=== PATIENT | male | born 1990 | race Caucasian/White ===

== ENCOUNTER 2017-06-21 10:42 | Emergency (ER) | payer MEDICAID ==
[2017-06-21 10:53] VITALS: BP 153/87
--- NOTE | 2017-06-21 11:27 | EDM.PDOC ---
ED HPI GENERAL MEDICAL PROBLEM - General Chief Complaint: ENT Problem Stated Complaint: TOOTHACHE LEFT UPPER AND LOWER Time Seen by Provider: 06/21/17 11:18 Source of Information: Reports: Patient, RN Notes Reviewed History Limitations: Reports: No Limitations - History of Present Illness INITIAL COMMENTS - FREE TEXT/NARRATIVE: 26-year-old female presents to the emergency department today with complaint of dental pain, she has been dealing with this for the last couple of months over the last couple days it has progressively gotten worse she is not had any fevers but she does have swelling on the left side of her face dentition is very poor she initially injured her teeth while eating and and breaking to teeth she does not have appointment with dentistry Left Upper Tooth/Teeth Pain Score (Numeric/FACES): 10 - Related Data Allergies Allergy/AdvReac Type Severity Reaction Status Date / Time cefixime [From Suprax] Allergy Rash Verified 07/23/16 20:56 Home Meds: Home Meds NK [No Known Home Meds] 07/23/16 [History] Past Medical History Other Cardiovascular History: rejilacontreras of [place] Psychiatric History: Reports: Addiction, Bipolar, Depression - Past Surgical History Cardiovascular Surgical History: Reports: Valve Replacement Social & Family History - Tobacco Use Smoking Status *Q: Never Smoker - Caffeine Use Caffeine Use: Reports: Soda - Recreational Drug Use Recreational Drug Use: No ED ROS ENT - Review of Systems Review Of Systems: See Below Constitutional: Denies: Fever, Chills HEENT: Reports: Dental Pain Respiratory: Reports: No Symptoms Cardiovascular: Reports: No Symptoms ED EXAM, ENT - Physical Exam Exam: See Below Text/Narrative:: Mouth mucosa is moist and pink she does have dental caries and fractured tooth # 15 and 16 both are tender to the touch Exam Limited By: No Limitations General Appearance: Alert, WD/WN, No Apparent Distress Respiratory/Chest: No Respiratory Distress Course - Vital Signs Last Recorded V/S: Last Vital Signs Temp 96.1 F 06/21/17 10:53 Pulse 82 06/21/17 10:53 Resp 16 06/21/17 10:53 BP 153/87 H 06/21/17 10:53 Pulse Ox 99 06/21/17 10:53 Departure - Departure Time of Disposition: 11:26 Disposition: Home, Self-Care 01 Condition: Good Clinical Impression: Infected tooth - Discharge Information Referrals: PCP,None [Primary Care Provider] - Additional Instructions: Take full course of antibiotics, use ibuprofen for baseline pain control use hydrocodone for breakthrough pain, please follow-up with dentistry SundayJune 26 at 8:15 in the morning at the [facility] dental clinic - Assessment/Plan Plan: Assessment Acuity = acute Site and laterality = dental pain tooth #16 and 17 with early abscess development Etiology = probable bacterial cause Manifestations = none Location of injury = Home Lab values = none Plan Treat with amoxicillin 500 mg by mouth 3 times a day 10 days prescription written for hydrocodone 5/325 one tab by mouth 3 times a day when necessary total #10 tablets were able to set up a dental appointment with her at the dental clinic June 26 8:15 in the morning This note was dictated using [email or web address] voice recognition software please call with any questions on syntax or ana lilia.
== END 2017-06-21 11:32 | disposition home or self-care (01) ==
LOC: JP.ED 10:42
DX: K04.7 Periapical abscess without sinus (principal); K03.81 Cracked tooth; K02.9 Dental caries, unspecified; Z88.1 Allergy status to other antibiotic agents
CPT/HCPCS: 99283

== ENCOUNTER 2021-05-28 19:13 | Emergency (ER) | payer MEDICAID ==
[2021-05-28 19:57] VITALS: BP 109/68; PULSE 68
--- NOTE | 2021-05-28 20:25 | EDM.PDOC ---
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 Recently had a checkup per cardiology back in April she states no issues she denies any shortness of breath no chest pain no discolored fingers the insides of her thighs are warm however the outside of her thighs where she has the blue-colored skin is cooler denies pain Pain Score (Numeric/FACES): 0 - Related Data Allergies Allergy/AdvReac Type Severity Reaction Status Date / Time cefixime [From Suprax] Allergy Rash Verified 05/28/21 19:43 Home Meds: Home Meds Pnv No.103/Folic/Om3s/Fish Oil [ Gummies] 1 tab PO DAILY 05/28/21 [History] Past Medical History HEENT History: Reports: Impaired Vision Cardiovascular History: Reports: Other (See Below) Other Cardiovascular History: tetralogy of fallot Respiratory History: Reports: Asthma Genitourinary History: Reports: None [employer]ES DATA A[employer]ST History: Reports: Psychiatric History: Reports: Addiction, Bipolar, Depression - Past Surgical History Head Surgeries/Procedures: Reports: None HEENT Surgical History: Reports: None Cardiovascular Surgical History: Reports: Valve Replacement, Other (See Below) Other Cardiovascular Surgeries/Procedures: 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 Female Surgical History: Reports: Section, Tubal Ligation Social & Family History - Tobacco Use Tobacco Use Status *Q: Never Tobacco User - Caffeine Use Caffeine Use: Reports: Soda - Recreational Drug Use Recreational Drug Use: No Review of Systems - Review of Systems Review Of Systems: See Below Constitutional: Reports: No Symptoms Respiratory: Reports: No Symptoms Cardiovascular: Reports: No Symptoms GI/Abdominal: Reports: No Symptoms Musculoskeletal: Reports: No Symptoms ED EXAM, GENERAL - Physical Exam Exam: See Below Free Text/Narrative:: Examination of the integument system predominantly on the thigh there is a large dusky patch mainly the outer aspect of the thigh right worse than left it is gotten bluish-reyna color it is slightly cooler to the touch compared to the inside of the thigh Exam Limited By: No Limitations General Appearance: Alert, WD/WN, No Apparent Distress Respiratory/Chest: No Respiratory Distress, Lungs Clear, Normal Breath Sounds, No Accessory Muscle Use, Chest Non-Tender Cardiovascular: Regular Rate, Rhythm, Systolic Murmur GI/Abdominal: Soft, Non-Tender Course - Vital Signs Last Recorded V/S: Last Vital Signs Temp 97.9 F 05/28/21 19:57 Pulse 68 05/28/21 19:57 Resp 13 05/28/21 19:57 BP 109/68 05/28/21 19:57 Pulse Ox 98 05/28/21 19:57 - Orders/Labs/Meds Labs: Laboratory Tests 05/28/21 05/28/21 05/28/21 Range/Units 20:32 20:32 20:32 WBC 6.3 (4.5-11.0) K/uL RBC 4.24 (3.30-5.50) M/uL Hgb 12.4 (12.0-15.0) g/dL Hct 38.5 (36.0-48.0) % MCV 91 (80-98) fL MCH 29 (27-31) pg MCHC 32 (32-36) % Plt Count 236 (150-400) K/uL D-Dimer, Quantitative 217.59 (0.0-500.0) ng/mL ABG Hemoglobin 12.6 (12.0-16.0) g/dL ABG Oxyhemoglobin 51.2 % ABG Carboxyhemoglobin 1.6 (0.0-1.6) % ABG Methemoglobin 0.9 % VBG pH 7.370 (7.350-7.450) VBG pCO2 49.4 mm/Hg VBG pO2 30.5 mm/Hg VBG HCO3 27.8 mmol/L VBG Total CO2 25.5 mmol/L VBG O2 Saturation 52.5 VBG O2 Content 9.0 %vol VBG Base Excess 2.3 mm/L O2 Delivery Device Room air Sodium (140-148) mmol/L Potassium (3.6-5.2) mmol/L Chloride (100-108) mmol/L Carbon Dioxide (21-32) mmol/L Anion Gap (5.0-14.0) mmol/L BUN (7-18) mg/dL Creatinine (0.6-1.0) mg/dL Est Cr Clr Drug Dosing mL/min Estimated GFR (MDRD) (>60) Glucose (74-106) mg/dL Calcium (8.5-10.1) mg/dL Total Bilirubin (0.2-1.0) mg/dL AST (15-37) U/L ALT (12-78) U/L Alkaline Phosphatase (46-116) U/L Total Protein (6.4-8.2) g/dL Albumin (3.4-5.0) g/dL Globulin (2.3-3.5) g/dL Albumin/Globulin Ratio (1.2-2.2) 05/28/21 Range/Units 20:32 WBC (4.5-11.0) K/uL RBC (3.30-5.50) M/uL Hgb (12.0-15.0) g/dL Hct (36.0-48.0) % MCV (80-98) fL MCH (27-31) pg MCHC (32-36) % Plt Count (150-400) K/uL D-Dimer, Quantitative (0.0-500.0) ng/mL ABG Hemoglobin (12.0-16.0) g/dL ABG Oxyhemoglobin % ABG Carboxyhemoglobin (0.0-1.6) % ABG Methemoglobin % VBG pH (7.350-7.450) VBG pCO2 mm/Hg VBG pO2 mm/Hg VBG HCO3 mmol/L VBG Total CO2 mmol/L VBG O2 Saturation VBG O2 Content %vol VBG Base Excess mm/L O2 Delivery Device Sodium 139 L (140-148) mmol/L Potassium 4.1 (3.6-5.2) mmol/L Chloride 103 (100-108) mmol/L Carbon Dioxide 29 (21-32) mmol/L Anion Gap 11.1 (5.0-14.0) mmol/L BUN 12 (7-18) mg/dL Creatinine 0.7 (0.6-1.0) mg/dL Est Cr Clr Drug Dosing 95.44 mL/min Estimated GFR (MDRD) > 60 (>60) Glucose 98 (74-106) mg/dL Calcium 9.2 (8.5-10.1) mg/dL Total Bilirubin 0.3 (0.2-1.0) mg/dL AST 15 (15-37) U/L ALT 22 (12-78) U/L Alkaline Phosphatase 103 (46-116) U/L Total Protein 6.9 (6.4-8.2) g/dL Albumin 3.9 (3.4-5.0) g/dL Globulin 3.0 (2.3-3.5) g/dL Albumin/Globulin Ratio 1.3 (1.2-2.2) Departure - Departure Time of Disposition: 21:20 Disposition: Home, Self-Care 01 Condition: Fair Clinical Impression: Discoloration of skin - Discharge Information Referrals: PCP,None [Primary Care Provider] - Forms: ED Department Discharge Additional Instructions: Please followup with your primary care provider in 3-5 days if not better, please call return to the emergency department with worsening of symptoms. Sepsis Event Note (ED) - Evaluation Sepsis Screening Result: No Definite Risk - Focused Exam Vital Signs: Vital Signs Temp Pulse Resp BP Pulse Ox 05/28/21 19:57 97.9 F 68 13 109/68 98 05/28/21 19:55 97.9 F 68 13 109/68 98 - Assessment/Plan Plan: Assessment Acuity = acute Site and laterality = blue-colored skin Etiology = unknown Manifestations = none Location of injury = Home Lab values = CBC, CMP, D-dimer, methemoglobin all within normal limits Plan Reviewed blood work with her and plan is she is can follow-up with her primary care next 3 to 5 days for further evaluation This note was dictated using [employer] voice recognition software please call with any questions on syntax or grammar.
== END 2021-05-28 21:27 | disposition home or self-care (01) ==
LOC: JP.ED 19:13
DX: L98.8 Other specified disorders of the skin and subcutaneous tissue (principal); Z88.1 Allergy status to other antibiotic agents
CPT/HCPCS: 36415; 80053; 82803; 85027; 85379; 99283